=== PATIENT | female | born 1975 | race Caucasian/White ===

== ENCOUNTER 2023-07-04 09:51 | Outpatient (CLI) | payer BC, SELFPAY ==
--- NOTE | ~2023-07-04 | US_ITS ---
EXAMINATION: US pelvic complete w TV DATE: 07/04/2023 10:20 INDICATION: Abdominal bloating. TECHNIQUE: Multiple transabdominal and transvaginal sonographic images of the pelvis were obtained. COMPARISON: None. FINDINGS: TRANSABDOMINAL ULTRASOUND: The uterus measures 10.6 x 5.1 x 4.5 cm. There is no free fluid in the pelvis. TRANSVAGINAL ULTRASOUND: The endometrial complex measures 5 mm in thickness. There is a 3.4 cm intramural fibroid. The right o vary measures 1.8 x 2.2 x 2.4 cm. The left ovary measures 3.0 x 3.1 x 2.2 cm. There is normal vascula r flow in the ovaries. IMPRESSION: 1. Uterine fibroid. Reviewed, dictated and finalized at location E. IMPRESSION: 1. Uterine fibroid.
== END 2023-07-04 09:52 ==
PROVIDERS: PCP Physician Assistant; Visit Provider Physician Assistant
DX: R14.0 Abdominal distension (gaseous) (principal); D25.9 Leiomyoma of uterus, unspecified
CPT/HCPCS: 76830; 76856